=== PATIENT | female | born 1970 | race Hispanic/Latino ===

== ENCOUNTER 2017-02-07 16:43 | Emergency (ER) | payer SELFPAY ==
--- NOTE | 2017-02-07 17:19 | RAD ---
RIGHT KNEE FOUR VIEWS: 02/07/17 HISTORY: Injury, right knee pain. FINDINGS/IMPRESSION: Comparison is made to exam of 11/28/16. Postop changes of ACL repair are again seen. There are mild degenerative changes. No fracture or dis location or bony destruction is identified. POS: [facility]
[2017-02-07] MEDS ORDERED: Ibuprofen 800 MG TAB ONE (17:35)
[2017-02-07] MEDS ORDERED: HYDROcodone/Acetaminophen 7.5/325 mg Tablet ONE (17:35)
== END 2017-02-07 17:50 | disposition home or self-care (01) ==
LOC: ERS 16:43
DX: S83.91XA Sprain of unspecified site of right knee, initial encounter (principal); Z87.891 Personal history of nicotine dependence; W18.30XA Fall on same level, unspecified, initial encounter

== ENCOUNTER 2017-11-17 13:41 | Emergency (ER) | payer SELFPAY ==
[2017-11-17 14:35] LABS: Bilirubin Negative (Negative); Blood, Urine Negative (Negative); Clarity CLOUDY (Clear); Glucose, Urine (Dipstick) Negative (Negative); Leukocyte Negative (Negative); Nitrite Negative (Negative); Protein, Urine (Dipstick) Negative (Neg-Trace); Specific Gravity, Urine 1.019 (1.002-1.036)
[2017-11-17 14:41] LABS: #Basophils 0.1 thou/uL (0.0-0.2); #Eosinphils 0.1 thou/uL (0.0-0.7); #Lymphocytes 2.4 thou/uL (1.20-3.40); #Monocytes 0.4 thou/uL (0.11-0.59); #Neutrophils 6.7 thou/uL (1.40-6.50); %Basophils 0.7 % (0.0-1.0); %Lymphocytes 24.9 % (21.0-51.0); %Monocytes 4.2 % (0.0-10.0); %Neutrophils 69.2 % (42.0-75.0); Hemoglobin 12.5 g/dL (12.0-16.0); Mean Corpuscular HGB CONC 34.7 g/dL (32.0-36.0); Mean Corpuscular Hemoglobin 28.2 pg (27.0-31.0); Mean Corpuscular Volume 81.4 fL (78.0-98.0); Mean Platelet Volume 8.3 fL (7.4-10.4); Platelet Count 259 thou/uL (130-400); RBC Distribution Width 13.6 % (11.5-14.5); Red Blood Cell (RBC) Count 4.42 mill/uL (4.20-5.40); White Blood Cell (WBC) Count 9.7 thou/uL (4.8-10.8)
[2017-11-17 15:05] LABS: ALT (SGPT) 24 U/L (8-55); AST (SGOT) 19 U/L (5-34); Albumin 3.9 g/dL (3.5-5.0); Alkaline Phosphatase 98 U/L (40-150); Anion Gap 11 mmol/L (10-20); BUN (Urea Nitrogen) 10 mg/dL (7.0-18.7); Bilirubin, Total 0.3 mg/dL (0.2-1.2); Calc. Creatinine Clearance 0 mL/min (70-130); Calcium 8.9 mg/dL (7.8-10.44); Carbon Dioxide 20 mmol/L (22-29); Chloride 109 mmol/L (98-107); Estimated GFR-MDRD 74; Globulin 3.4 g/dL (2.4-3.5); Glucose 148 mg/dL (70-105); Potassium 3.3 mmol/L (3.5-5.1); Protein, Total 7.3 g/dL (6.0-8.3); Sodium 137 mmol/L (136-145)
== END 2017-11-17 15:18 | disposition home or self-care (01) ==
LOC: ERS 13:41
DX: E11.65 Type 2 diabetes mellitus with hyperglycemia (principal); J45.909 Unspecified asthma, uncomplicated; D64.9 Anemia, unspecified; Z79.899 Other long term (current) drug therapy; Z79.84 Long term (current) use of oral hypoglycemic drugs
CPT/HCPCS: 36415; 36416; 80053; 81003; 82010; 85025; 99284

== ENCOUNTER 2018-03-10 14:36 | Emergency (ER) | payer MEDICARE, SELFPAY ==
--- NOTE | 2018-03-10 15:25 | RAD ---
CHEST ONE VIEW: History: Chest pain Comparison: 09-10-15 FINDINGS: Cardiac silhouette is magnified by projection. Pulmonary vasculature is unremarkable. Mediastinum is midline. No lobar consolidation or evidence of pneumothorax. IMPRESSION: No active cardiopulmonary abnormalities are demonstrated. POS: [facility]
[2018-03-10 16:03] LABS: CKMB 0.4 ng/mL (0-6.6); Troponin I Less than 0.010 ng/mL (< 0.028)
== END 2018-03-10 16:35 | disposition home or self-care (01) ==
LOC: ERS 14:36
DX: R55 Syncope and collapse (principal); E11.9 Type 2 diabetes mellitus without complications; E66.9 Obesity, unspecified; J45.909 Unspecified asthma, uncomplicated; D64.9 Anemia, unspecified; F32.9 Major depressive disorder, single episode, unspecified; Z79.84 Long term (current) use of oral hypoglycemic drugs
CPT/HCPCS: 36415; 71045; 82550; 82553; 84484; 93005

== ENCOUNTER 2018-03-22 09:52 | Outpatient (CLI) | payer MEDICARE ==
--- NOTE | 2018-03-22 13:55 | MRI ---
BRAIN MRI WITH AND WITHOUT CONTRAST: INDICATION: Headache syndrome. FINDINGS: There is no ventriculomegaly, mass effect, midline shift, or acute territorial infarction. No signif icant signal abnormalities of the brain parenchyma are present. No pathologic intraaxial enhancement . The imaged skull base flow voids are maintained. IMPRESSION: No evidence of an acute intracranial abnormality. POS: [facility]
== END 2018-03-22 09:53 | disposition home or self-care (01) ==
LOC: BICMRI 09:52
PROVIDERS: ATTEND Family Medicine
DX: G44.89 Other headache syndrome (principal); R55 Syncope and collapse
CPT/HCPCS: 70553; 82565

== ENCOUNTER 2019-01-12 06:56 | Outpatient (CLI) | payer MEDICARE, MEDICAID ==
--- NOTE | 2019-01-12 09:28 | CT ---
CT ABDOMEN AND PELVIS WITH IV CONTRAST: Date: 01/12/19 Oral contrast administered. Multiplanar reconstruction. INDICATION: Abdominal pain. No comparison studies. FINDINGS: Lung bases clear. Liver, spleen, and pancreas unremarkable. Stomach and duodenum unremarkable. Adrenal glands normal. Review of the kidneys shows no evidence of hydronephrosis. There are at least two nonobstructing calc flaco in the mid and lower pole of the right kidney, each measuring in the 3.0 mm range. There is nonob structing calculus in the lower pole of the left kidney measuring in the 3-4 mm range. There is a 1.0 cm cystic lesion lower pole left kidney. Ureters are normal caliber. Urinary bladder mildly distended and unremarkable. Small bowel loops normal caliber. Appendix appears normal. Colon unremarkable. Aorta normal caliber. No adenopathy apparent. Images through the pelvis show unremarkable uterus and adnexa. Both ovaries show follicular cysts. No free fluid. Tiny umbilical hernia. Osseous structures unremarkable. IMPRESSION: 1. There are nonobstructing calculi in the upper collecting structures of both kidneys as described. 2. Small cystic lesion lower pole left kidney. 3. Small umbilical hernia. 4. No acute process apparent. POS: [facility]
[2019-01-12] MEDS ORDERED: Iopamidol 370 76% 100 ML VIAL ONE (11:10)
[2019-01-12] MEDS ORDERED: Iopamidol 370 76% 50 ML VIAL FS ONE (11:10)
== END 2019-01-12 06:57 | disposition home or self-care (01) ==
LOC: CT 06:56
PROVIDERS: ATTEND Family Medicine
DX: R19.01 Right upper quadrant abdominal swelling, mass and lump (principal); K42.9 Umbilical hernia without obstruction or gangrene; N20.0 Calculus of kidney; N28.89 Other specified disorders of kidney and ureter
CPT/HCPCS: 74177; Q9967

== ENCOUNTER 2019-01-21 11:03 | Outpatient (CLI) | payer MEDICARE, MEDICAID ==
--- NOTE | 2019-01-21 12:52 | MMO ---
Bilateral MAMMO Bilat Screen [facility]. CLINICAL HISTORY: Patient is 48 years old and is seen for screening. The patient has the following family history of breast cancer: mother, at age 50. The patient has no personal history of cancer. VIEWS: The views performed were: bilateral craniocaudal with tomosynthesis and bilateral mediolateral oblique with tomosynthesis. FILMS COMPARED: The present examination has been compared to a prior imaging study performed at [facility] on 08/08/2015. This study has been interpreted with the assistance of computer-aided detection. MAMMOGRAM FINDINGS: There are scattered fibroglandular densities. There is a stable oval mass seen in the left breast. There are no suspicious masses, suspicious calcifications, or new areas of architectural distortion. IMPRESSION: THERE IS NO MAMMOGRAPHIC EVIDENCE OF MALIGNANCY. A ROUTINE FOLLOW-UP MAMMOGRAM IN 1 YEAR IS RECOMMENDED. THE RESULTS OF THIS EXAM WERE SENT TO THE PATIENT. ACR BI-RADS Category 2 - Benign finding MAMMOGRAPHY NOTE: 1. A negative mammogram report should not delay a biopsy if a dominant of clinically suspicious mass is present. 2. Approximately 10% to 15% of breast cancers are not detected by mammography. 3. Adenosis and dense breasts may obscure an underlying neoplasm. Reported by: SALVADOR VENTURA MD Electonically Signed: [id number]
== END 2019-01-21 11:04 | disposition home or self-care (01) ==
LOC: BICMAMMO 11:03
PROVIDERS: ATTEND Family Medicine
DX: Z12.31 Encounter for screening mammogram for malignant neoplasm of breast (principal); Z80.3 Family history of malignant neoplasm of breast
CPT/HCPCS: 77063; 77067

== ENCOUNTER 2019-03-08 11:32 | Emergency (ER) | payer MEDICARE, MEDICAID | END 2019-03-08 13:30 | disposition left against medical advice (07) | LOC: ERS 11:32 | DX: Z53.21 Procedure and treatment not carried out due to patient leaving prior to being seen by health care provider (principal) ==

== ENCOUNTER 2019-10-23 23:20 | Emergency (ER) | payer MEDICARE, MEDICAID, OTHER | END 2019-10-24 00:08 | disposition home or self-care (01) | LOC: ERS 23:20 | DX: I88.9 Nonspecific lymphadenitis, unspecified (principal); E11.9 Type 2 diabetes mellitus without complications; I10 Essential (primary) hypertension; F32.9 Major depressive disorder, single episode, unspecified | CPT/HCPCS: 99283 ==

== ENCOUNTER 2019-10-24 22:09 | Emergency (ER) | payer MEDICARE, MEDICAID, OTHER | END 2019-10-24 23:09 | disposition home or self-care (01) | LOC: ERS 22:09 | DX: R21 Rash and other nonspecific skin eruption (principal); E11.9 Type 2 diabetes mellitus without complications; I10 Essential (primary) hypertension; F32.9 Major depressive disorder, single episode, unspecified; Z79.84 Long term (current) use of oral hypoglycemic drugs; Z79.899 Other long term (current) drug therapy | CPT/HCPCS: 99283 ==

== ENCOUNTER 2024-04-10 22:54 | Observation (INO) | payer OTHER, MEDICAID ==
[~2024-04-10 22:54] MED LIST: Iopamidol-370 76% 500 ML MDV (1 ML CHARGE) ONE
[2024-04-10 23:20] LABS: #Basophils Less than 0.03 10x3/uL (0.0-0.2); %Basophils 0.2 % (0.0-1.0); %Eosinophils 1.5 % (0.0-10.0); %Lymphocytes 36.3 % (21.0-51.0); %Monocytes 5.6 % (0.0-10.0); %Neutrophils 56.2 % (42.0-75.0); Hemoglobin 12.3 g/dL (12.0-16.0); Mean Corpuscular HGB CONC 33.2 g/dL (32.0-36.0); Mean Corpuscular Hemoglobin 29.9 pg (27.0-31.0); Mean Corpuscular Volume 89.8 fL (78.0-98.0); Mean Platelet Volume 10.7 fL (7.4-10.4); Platelet Count 319 10x3/uL (130-400); RBC Distribution Width 12.4 % (11.5-14.5); Red Blood Cell (RBC) Count 4.12 mill/uL (4.20-5.40)
[2024-04-10 23:29] LABS: BHCG - Serum Negative (NEGATIVE); Pregs Control Background? CLEAR/WHITE (CLR/WHITE); Pregs Control Bar Appear? YES (CONTROL BAR)
[2024-04-10 23:36] LABS: INR-International Normal Ratio 0.9; PTT 28.1 sec (22.9-36.1); Prothrombin Time 12.3 sec (12.0-14.7)
[2024-04-10 23:38] LABS: ALT (SGPT) 23 U/L (8-55); AST (SGOT) 19 U/L (5-34); Albumin 3.3 g/dL (3.5-5.0); Alkaline Phosphatase 107 U/L (40-110); Anion Gap 13 mmol/L (10-20); BUN (Urea Nitrogen) 11 mg/dL (9.8-20.1); Bilirubin, Total 0.2 mg/dL (0.2-1.2); Calc. Creatinine Clearance 0 mL/min (70-130); Calcium 8.7 mg/dL (7.8-10.44); Carbon Dioxide 23 mmol/L (22-29); Chloride 108 mmol/L (98-107); Estimated GFR 66; Globulin 3.3 g/dL (2.4-3.5); Glucose 210 mg/dL (70-105); Protein, Total 6.6 g/dL (6.0-8.3); Sodium 140 mmol/L (136-145)
[2024-04-10 23:40] LABS: Acetaminophen 13 mcg/mL (Less than 10); Alcohol Less than 10.0 mg/dL (Less than 10); Salicylate Less than 8.0 mg/dL (Less than 8.0)
[2024-04-10 23:42] LABS: Troponin I Less than 0.010 ng/mL (< 0.028)
[2024-04-11 01:21] LABS: Amphetamine Not Detected (NotDetected); Barbiturates Screen Not Detected (NotDetected); Benzodiazepine Screen Not Detected (NotDetected); Cocaine Metabolite Screen Not Detected (NotDetected); Methadone Not Detected (NotDetected); Methamphetamine Not Detected (NotDetected); Opiate Screen Detected (NotDetected); Oxycodone Screen Not Detected (NotDetected); Phencyclidine (PCP) Not Detected (NotDetected); THC/Cannabinoid Screen Not Detected (NotDetected); Tricyclic Screen Detected (NotDetected)
[2024-04-11 01:30] LABS: Bacteria/HPF None Seen HPF (None Seen); Bilirubin Negative (Negative); Blood, Urine Negative (Negative); CAUTI Indications for Culture Alt mental st,lethar; Clarity Clear (Clear); Glucose, Urine (Dipstick) Normal (Negative); Ketone, Urine Negative (Negative); Leukocyte 25 Leu/uL (Negative); Nitrite Negative (Negative); Protein, Urine (Dipstick) 10 mg/dL (Neg-Trace); RBC/HPF None Seen HPF (0-3); Urobilinogen Normal mg/dL (Less than 2); WBC/HPF 0-3 HPF (0-3); pH, Urine 6.5 (5.0-9.0)
[2024-04-11 01:32] LABS: Specific Gravity, Urine Greater than 1.060 (1.002-1.036); Urine Culture Reflex No No
[2024-04-11] MEDS ORDERED: Acetaminophen 325 MG TAB PO PRN (01:40)
[2024-04-11] MEDS ORDERED: Ondansetron ODT 4 MG TAB PO PRN (01:40)
[2024-04-11] MEDS ORDERED: traMADol HCl 50 MG TAB PO PRN (01:40)
[2024-04-11] MEDS ORDERED: Ondansetron PF 4 MG/2 ML Vial IVP PRN (01:40)
[2024-04-11] MEDS ORDERED: hydrALAZINE 20 MG/ML VIAL SLOW IVP PRN (01:42)
[2024-04-11] MEDS ORDERED: Dextrose 5% in Water 1,000 ML IV PRN (02:27)
[2024-04-11] MEDS ORDERED: Glucagon 1 MG/ML KIT IM PRN (02:27)
[2024-04-11] MEDS ORDERED: Insulin Lispro 100 UNIT/ML 10 ML VIAL SC PRN ×2 (02:27)
[2024-04-11] MEDS ORDERED: Aspirin Chewable 81 MG TAB ONE ×3 (02:38→02:42)
[2024-04-11] MEDS ORDERED: Aspirin 81 mg Enteric Coated Tablet ONE (02:39)
[2024-04-11 04:38] LABS: #Basophils 0.03 10x3/uL (0.0-0.2); %Basophils 0.3 % (0.0-1.0); %Eosinophils 1.4 % (0.0-10.0); %Lymphocytes 41.6 % (21.0-51.0); %Monocytes 5.5 % (0.0-10.0); %Neutrophils 50.9 % (42.0-75.0); Mean Corpuscular HGB CONC 33.3 g/dL (32.0-36.0); Mean Corpuscular Hemoglobin 29.9 pg (27.0-31.0); Mean Corpuscular Volume 89.7 fL (78.0-98.0); Platelet Count 270 10x3/uL (130-400); RBC Distribution Width 12.4 % (11.5-14.5); Red Blood Cell (RBC) Count 3.68 mill/uL (4.20-5.40)
[2024-04-11] MEDS: Sodium Chloride 0.9% 1,000 ML IV SCH (04:40)
[2024-04-11] MEDS: Pantoprazole 40 MG VIAL IVP SCH (04:52)
[2024-04-11 04:57] VITALS: BMI 36.3
[2024-04-11 05:12] LABS: ALT (SGPT) 22 U/L (8-55); AST (SGOT) 16 U/L (5-34); Albumin 3.1 g/dL (3.5-5.0); Alkaline Phosphatase 90 U/L (40-110); Anion Gap 10 mmol/L (10-20); BUN (Urea Nitrogen) 11 mg/dL (9.8-20.1); Bilirubin, Total 0.2 mg/dL (0.2-1.2); Calc. Creatinine Clearance 125 mL/min (70-130); Calcium 8.5 mg/dL (7.8-10.44); Carbon Dioxide 24 mmol/L (22-29); Cardiac Risk 3.3 (Less than 4.5); Chloride 110 mmol/L (98-107); Cholesterol 132 mg/dl (< 200 Desired); Estimated GFR 95; Glucose 41 mg/dL (70-105); HDL Cholesterol 40 mg/dL (>60 Neg Risk); LDL Cholesterol, Calculated 61 mg/dL; Protein, Total 6.1 g/dL (6.0-8.3); Sodium 140 mmol/L (136-145); Triglycerides 154 mg/dL (Less than 150)
[2024-04-11] MEDS: Dextrose 50% Abboject 50 ML SYRINGE SLOW IVP PRN (05:18)
[2024-04-11] MEDS: Famotidine 20 MG TAB PO SCH (10:06)
[2024-04-11] MEDS: Famotidine/PF 20 mg/2ml Vial SLOW IVP SCH (10:06)
[2024-04-11] MEDS: Aspirin 81 mg Enteric Coated Tablet PO SCH (10:06)
[2024-04-11] MEDS: Enoxaparin 40 MG (0.4 mL) SYRINGE SC SCH (10:06)
[2024-04-11 10:23] VITALS: BMI 36.3
[2024-04-11 18:23] VITALS: BP 132/74; TEMP 98.1
[2024-04-11] MEDS ORDERED: Atorvastatin Calcium 40 MG TAB PO SCH (21:00)
[2024-04-11] MEDS ORDERED: Amitriptyline HCl 10 MG TAB PO SCH (21:00)
== END 2024-04-11 19:00 | disposition home or self-care (01) ==
LOC: ERS 22:54 → 2SE 04-11 01:40
PROVIDERS: ADMIT Internal Medicine; ATTEND Internal Medicine
PROC: B246ZZZ Ultrasonography of Right and Left Heart (ICD-10-PCS; principal; 2024-04-11)
DX: G45.9 Transient cerebral ischemic attack, unspecified (principal); I10 Essential (primary) hypertension; F32.A Depression, unspecified; F99 Mental disorder, not otherwise specified; E11.649 Type 2 diabetes mellitus with hypoglycemia without coma; Z79.899 Other long term (current) drug therapy; Z79.82 Long term (current) use of aspirin; Z79.84 Long term (current) use of oral hypoglycemic drugs
CPT/HCPCS: 70450; 70496; 70498; 70551; 71045; 80053 ×2; 80061; 80306; 80307; 81001; 82962 ×2; 83605; 84484; 84703; 85025 ×2; 85610; 85730; 86850; 86900; 86901; 87040; 93005; 93306; 94760; 96372; 96374; 96375; 97530; G0378 ×2; J1650; J2470; J7999; Q9967; 36415; 36416

== ENCOUNTER 2025-03-13 12:19 | Outpatient (CLI) | payer OTHER | END 2025-03-13 12:20 | disposition home or self-care (01) | LOC: RAD 12:19 | PROVIDERS: ATTEND Family Medicine | DX: M47.26 Other spondylosis with radiculopathy, lumbar region (principal) | CPT/HCPCS: 72110 ==